=== PATIENT | male | born 1970 | race Caucasian/White ===

== ENCOUNTER 2021-06-24 15:15 | Emergency (ER) | payer BC, OTHER ==
[~2021-06-24] VITALS: Ht 190.5 cm; Wt 71.2 kg
--- NOTE | 2021-06-24 15:38 | NUR ---
[id number] HOME S/P TAKING VILAZODONE INSTEAD OF TAKING HIS PRESCRIBE ATB STATES "I JUST DONT FEEL GOOD". THE PATIENT IS ALERT AND ORIENTED X3. DENIES PAIN. IN ROOM AIR AND DENIES SOB. RESPIRATION REGULAR AND UNLABORED. ATTACHED TO THE MONITOR.
[2021-06-24] MEDS ORDERED: diphenhydrAMINE HCL 25 MG CAPSULE PO ONE (16:00)
[2021-06-24] MEDS ORDERED: diphenhydrAMINE HCL 25 MG CAPSULE ONE (16:59)
[2021-06-24] MEDS ORDERED: METOPROLOL TARTRATE 25 MG TABLET ONE (16:59)
[2021-06-24] MEDS ORDERED: METOPROLOL TARTRATE 25 MG TABLET PO ONE (17:00)
[2021-06-24] MEDS ORDERED: METO25TA6 PO (17:20)
[2021-06-24 17:51] VITALS: BP 145/87
--- NOTE | 2021-06-24 17:51 | NUR ---
Patient discharged to home in stable condition. Written and verbal after care instructions given. Patient verbalizes understanding of instruction.
== END 2021-06-24 17:51 | disposition home or self-care (01) ==
LOC: ER 15:24
DX: T43.621A Poisoning by amphetamines, accidental (unintentional), initial encounter (principal); I10 Essential (primary) hypertension; F32.9 Major depressive disorder, single episode, unspecified; R00.0 Tachycardia, unspecified; Y92.89 Other specified places as the place of occurrence of the external cause
CPT/HCPCS: 93005; 99283; Q0163

== ENCOUNTER 2021-07-19 06:58 | Emergency (ER) | payer BC, OTHER ==
[~2021-07-19] VITALS: Ht 190.5 cm; Wt 79.4 kg
[2021-07-19 07:03] VITALS: BP 170/101
--- NOTE | 2021-07-19 07:44 | NUR ---
Patient discharged to home in stable condition. Written and verbal after care instructions given. Patient verbalizes understanding of instruction.
== END 2021-07-19 07:44 | disposition home or self-care (01) ==
LOC: ER 07:00
DX: F19.10 Other psychoactive substance abuse, uncomplicated (principal); I10 Essential (primary) hypertension; F32.9 Major depressive disorder, single episode, unspecified; Z95.0 Presence of cardiac pacemaker; Z79.899 Other long term (current) drug therapy

== ENCOUNTER → 2021-07-19 | Emergency (ER) | payer BC, OTHER ==
[~2021-07-19] VITALS: Ht 185.4 cm; Wt 104.3 kg
[~2021-07-19] MED LIST: METO25TA6 PO
[2021-07-19 10:39] VITALS: BP 145/88
== END | disposition home or self-care (01) ==
LOC: ER 10:32
DX: F19.10 Other psychoactive substance abuse, uncomplicated (principal); I10 Essential (primary) hypertension; F32.9 Major depressive disorder, single episode, unspecified; Z95.0 Presence of cardiac pacemaker; Z60.2 Problems related to living alone; Z79.899 Other long term (current) drug therapy

== ENCOUNTER 2021-07-23 11:09 | Emergency (ER) | payer BC, OTHER ==
[~2021-07-23] VITALS: Ht 175.3 cm; Wt 72.6 kg
[2021-07-23 11:10] VITALS: BP 147/108
--- NOTE | 2021-07-23 11:15 | NUR ---
BIBA [id number] "Been having on/off chest pain x6H was walking today and it got worse" No NTG "took cialis" +Anxiety/restless. BS-84. Patient a/ox4, breathing even and unlabored. No distress noted. Unable to sit still.
--- NOTE | 2021-07-23 11:39 | NUR ---
PATIENT ON THE PHONE SCREAMING, YELLING, CURSING AT THE HALLWAY. WAS TOLD TO GO BACK TO HIS ROOM FOR CXR. PATIENT KEPT TALKING TO THE PHONE.
--- NOTE | 2021-07-23 12:23 | NUR ---
pt refusing all test. dr vinson aware. escorted out of ED
== END 2021-07-23 12:26 | disposition left against medical advice (07) ==
LOC: ER 11:19
DX: R07.89 Other chest pain (principal); I10 Essential (primary) hypertension; F32.9 Major depressive disorder, single episode, unspecified; Z95.0 Presence of cardiac pacemaker; Z60.2 Problems related to living alone; Z79.899 Other long term (current) drug therapy
CPT/HCPCS: 71045-TC